=== PATIENT | female | born 1990 | race Caucasian/White ===

== ENCOUNTER 2018-12-22 12:24 | Emergency (ER) | payer OTHER ==
[2018-12-22 13:34] VITALS: BP 118/74
--- NOTE | 2018-12-22 13:47 | UC ---
Lower Extremity/Ankle HPI - HPI Summary HPI Summary: 27-year-old female presents with complaints of right leg pain. States pain initially started in her right medial thigh. Over the next couple of days the pain then progressed to include the back of her knee and into her right calf. States currently the pain is localized in the posterior calf. Pain worsens with ambulation. No known injury. Patient has Nexplanon implant. Nonsmoker. Denies recent confinement, recent surgery, history of cancer, personal or family history of blood clots, fever, chills, chest pain, shortness of breath, extremity weakness, parathesias, erythema or edema of the lower leg or foot. - History of Current Complaint Chief Complaint: UCLowerExtremity Stated Complaint: RIGHT LEG PAIN x1 WK Time Seen by Provider: 12/22/18 13:07 Hx Obtained From: Patient Hx Last Menstrual Period: no cycle due to control Pain Intensity: 2 - Allergies/Home Medications Allergies/Adverse Reactions: Allergies Allergy/AdvReac Type Severity Reaction Status Date / Time No Known Allergies Allergy Verified 12/22/18 14:05 Home Medications: Home Medications ALPRAZolam TAB* [Xanax TAB*] 0.5 mg PO Q8H PRN 12/22/18 [History Confirmed 12/22] Etonogestrel [Nexplanon] 68 mg SUBCUT 12/22/18 [History] PMH/Surg Hx/FS Hx/Imm Hx Previously Healthy: Yes Psychological History: Anxiety - Surgical History Surgical History: None - Family History Known Family History: Positive: Non-Contributory - Social History Occupation: Unemployed Lives: With Family Alcohol Use: Rare Substance Use Type: None Smoking Status (MU): Never Smoked Tobacco Review of Systems All Other Systems Reviewed And Are Negative: Yes Constitutional: Negative: Fever, Chills Respiratory: Negative: Shortness Of Breath, Cough Cardiovascular: Negative: Palpitations, Chest Pain Gastrointestinal: Positive: Negative Genitourinary: Positive: Negative Musculoskeletal: Positive: Other: - See HPI Neurological: Negative: Weakness, Paresthesia, Numbness Physical Exam - Summary Physical Exam Summary: GENERAL APPEARANCE: Well developed, well nourished, alert and cooperative, and appears to be in no acute distress. CARDIAC: Normal S1 and S2. No S3, S4 or murmurs. Rhythm is regular. There is no peripheral edema, cyanosis or pallor. Extremities are warm and well perfused. Capillary refill is less than 2 seconds. Peripheral pulses intact. LUNGS: Clear to auscultation without rales, rhonchi, wheezing or diminished breath sounds. ABDOMEN: Positive bowel sounds. Soft, nondistended, nontender. No guarding or rebound. No masses or hepatosplenomegally. MUSKULOSKELETAL: ROM intact to all extremities. No joint erythema or tenderness. Normal muscular development. Normal gait. EXTREMITIES: Right lower leg non-tender. No erythema or edema. Calf supple and non-tender. Circulation and sensation intact. SKIN: Skin normal color, texture and turgor with no lesions or eruptions. Triage Information Reviewed: Yes Vital Signs: Initial Vital Signs Temp 98.7 F 12/22/18 13:24 Pulse 83 12/22/18 13:24 Resp 18 12/22/18 13:24 BP 118/74 12/22/18 13:24 Pulse Ox 99 12/22/18 13:24 Vital Signs Reviewed: Yes Diagnostics - Radiology No standard instances Radiology Interpretation Completed By: Radiologist Summary of Radiographic Findings: Order Information: VL LOWER EXT VEINS RIGHT. Accession Number: [id number]. CPT: 45577. INDICATION: One-week RIGHT lower calf pain. COMPARISON: No relevant prior exams available on the [facility] for comparison. TECHNIQUE: Ellis scale, color Doppler, and spectral analysis of the deep veins of the RIGHT lower extremity. Vessel compression, phasicity, and augmentation assessed. REPORT: The RIGHT common femoral, great saphenous, profunda femoral, femoral, popliteal, and peroneal, are patent. One of the posterior tibial veins is visualized and appears patent. The other posterior tibial vein could not be visualized limiting assessment. Patency of the LEFT common femoral vein documented. IMPRESSION: #. No evidence for RIGHT lower extremity deep venous thrombosis with limitation of nonvisualization of one of the posterior tibial veins as noted. Lower Extremity Course/Dx - Course Course Of Treatment: 27-year-old female presents with complaints of right leg pain. States pain initially started in her right medial thigh. Over the next couple of days the pain then progressed to include the back of her knee and into her right calf. States currently the pain is localized in the posterior calf. Pain worsens with ambulation. No known injury. Patient has Nexplanon implant. Nonsmoker. Denies recent confinement, recent surgery, history of cancer, personal or family history of blood clots, fever, chills, chest pain, shortness of breath, extremity weakness, parathesias, erythema or edema of the lower leg or foot. Afebrile. VSS. Exam was overall unremarkable. Venous dopper US of the right leg showed no evidence of thrombus. Reviewed findings with the patient. Recommending conservative treatment for right leg pain including over-the- counter analgesics and RICE. Patient does not have a primary care provider for she is to follow-up at the [facility] [place] 5-7 days if symptoms are not improving. Anticipatory guidance and warning symptoms are reviewed with the patient. Verbalizes understanding and agrees with plan of care. - Differential Dx/Diagnosis Differential Diagnosis/HQI/PQRI: Cellulitis, DVT, Sprain, Strain, Tendonitis, Tenosynovitis Provider Diagnosis: Right leg pain Discharge - Sign-Out/Discharge Documenting (check all that apply): Patient Departure All imaging exams completed and their final reports reviewed: Yes - Discharge Plan Condition: Stable Disposition: HOME Patient Education Materials: Leg Pain (ED) Referrals: No Primary Care Phys,NOPCP [Primary Care Provider] - [facility] [Outside] [facility] [Outside] - 5 Days (If no improvement in symptoms. Call for appointment.) Additional Instructions: The ultrasound performed in the clinic today showed no evidence of a blood clot in the leg. I am unsure of the exact cause of your pain but will treat symptomatically. Rest the leg as much as possible. Elevate the leg to help reduce swelling. Take acetaminophen (Tylenol) or ibuprofen (Advil, Motrin) according to directions as needed for pain. Follow up with the [facility] in 5-7 days if symptoms do not improve. Call for appointment. I have also provided you with the contact information for the [facility] physician referral service to assist you with establishing with a primary care provider. Seek immediate medical attention if you have chest pain, shortness of breath, severe pain not managed with pain medication, you are unable to walk or bear any weight, develop numbness or tingling in the leg, foot, or toes, or have any worsening of symptoms. - Billing Disposition and Condition Condition: STABLE Disposition: Home
== END 2018-12-22 14:57 | disposition home or self-care (01) ==
LOC: UCCORT 12:24
DX: M79.604 Pain in right leg (principal)
CPT/HCPCS: 99201; G0463

== ENCOUNTER 2019-08-26 15:15 | Emergency (ER) | payer OTHER ==
[2019-08-26 16:39] VITALS: BP 119/78
--- NOTE | 2019-08-26 17:00 | UC ---
UC General HPI - HPI Summary HPI Summary: Increase in number of BMs from 1- 2 weekly to QAM onset 3/4-5, also change to softer, scant BMs q AM; more flatus, urge to go, today pain with BM. Pt's house mate had dx of parasite in stool mid 2019 the organism was Endolimax osvaldo and treated with flagyl. no eported weight loss - History of Current Complaint Chief Complaint: UCGI Stated Complaint: PAINFUL BM, DIARRHEA Time Seen by Provider: 08/26/19 16:29 Hx Obtained From: Patient Hx Last Menstrual Period: unknown Onset/Duration: Sudden Onset, Lasting Days Timing: Constant Onset Severity: Mild Current Severity: Mild Pain Intensity: 0 Associated Signs & Symptoms: Positive: Diarrhea - Allergy/Home Medications Allergies/Adverse Reactions: Allergies Allergy/AdvReac Type Severity Reaction Status Date / Time No Known Allergies Allergy Verified 08/26/19 16:39 Home Medications: Home Medications ALPRAZolam TAB* [Xanax TAB*] 0.5 mg PO Q8H PRN 12/22/18 [History Confirmed 08/25] Etonogestrel [Nexplanon] 68 mg SUBCUT DAILY 12/22/18 [History Confirmed 08/26/19 ] metroNIDAZOLE [Flagyl 500 MG TAB] 500 mg PO BID #14 tab 08/26/19 [Rx] PMH/Surg Hx/FS Hx/Imm Hx Previously Healthy: Yes - Surgical History Surgical History: None - Family History Known Family History: Positive: Hypertension - Social History Alcohol Use: Rare Substance Use Type: None Smoking Status (MU): Never Smoked Tobacco Review of Systems All Other Systems Reviewed And Are Negative: Yes Gastrointestinal: Positive: Abdominal Pain, Diarrhea Is Patient Immunocompromised?: No Physical Exam Triage Information Reviewed: Yes Appearance: Well-Appearing, Well-Nourished, Pain Distress Vital Signs: Initial Vital Signs Temp 97.7 F 08/26/19 16:29 Pulse 84 08/26/19 16:29 Resp 24 08/26/19 16:29 BP 119/78 08/26/19 16:29 Pulse Ox 100 08/26/19 16:29 Vital Signs Reviewed: Yes Eye Exam: Normal ENT Exam: Normal Dental Exam: Normal Neck exam: Normal Respiratory Exam: Normal Cardiovascular Exam: Normal Abdominal Exam: Normal Bowel Sounds: Positive: Present Musculoskeletal Exam: Normal Neurological Exam: Normal Psychological Exam: Normal Skin Exam: Normal Course/Dx - Course Course Of Treatment: hx obtained, exam performed, meds reviewed, sent with stool kit, given a script for flagyl - Diagnoses Provider Diagnosis: Diarrhea Discharge ED - Sign-Out/Discharge Documenting (check all that apply): Patient Departure All imaging exams completed and their final reports reviewed: No Studies - Discharge Plan Condition: Stable Disposition: HOME Patient Education Materials: Acute Diarrhea (ED) Referrals: No Primary Care Phys,NOPCP [Primary Care Provider] - Additional Instructions: 1. bring the stool sample back tomorrow. 2 Start the flagyl after the sample is completed - Billing Disposition and Condition Condition: STABLE Disposition: Home
== END 2019-08-26 17:25 | disposition home or self-care (01) ==
LOC: UCCORT 15:15
DX: R19.7 Diarrhea, unspecified (principal); R10.9 Unspecified abdominal pain
CPT/HCPCS: 87045; 87046; 87328; 87329; 87899; 99212; G0463